=== PATIENT | female | born 1995 | race Two or more races ===

== ENCOUNTER 2018-10-08 07:34 | Emergency (ER) | payer OTHER ==
[~2018-10-08] VITALS: Ht 160 cm; Wt 125.6 kg
[2018-10-08 07:36] VITALS: Ht 160 cm; Wt 125.6 kg
[2018-10-08 09:42] VITALS: BP 110/74
== END 2018-10-08 09:43 | disposition home or self-care (01) ==
LOC: ED 07:34
DX: J45.901 Unspecified asthma with (acute) exacerbation (principal); E66.01 Morbid (severe) obesity due to excess calories; Z68.42 Body mass index [BMI] 45.0-49.9, adult; Z88.8 Allergy status to other drugs, medicaments and biological substances
CPT/HCPCS: J2930; J7613; J7644

== ENCOUNTER 2019-05-22 19:21 | Emergency (ER) | payer MEDICAID ==
[~2019-05-22] VITALS: Ht 160 cm; Wt 108.9 kg
[2019-05-22 19:30] VITALS: Ht 160 cm; Wt 108.9 kg
[2019-05-22 22:08] VITALS: BP 110/40
== END 2019-05-22 22:08 | disposition home or self-care (01) ==
LOC: ED 19:21
DX: O9A.212 Injury, poisoning and certain other consequences of external causes complicating pregnancy, second trimester (principal); S93.401A Sprain of unspecified ligament of right ankle, initial encounter; R10.9 Unspecified abdominal pain; Z3A.23 23 weeks gestation of pregnancy; W10.8XXA Fall (on) (from) other stairs and steps, initial encounter; Y93.89 Activity, other specified; Y92.89 Other specified places as the place of occurrence of the external cause; Y99.8 Other external cause status
CPT/HCPCS: Q0092

== ENCOUNTER 2019-05-25 16:12 | Emergency (ER) | payer MEDICAID ==
[~2019-05-25] VITALS: Ht 160 cm; Wt 106.6 kg
[2019-05-25 16:20] VITALS: BP 106/82; Ht 160 cm; Wt 106.6 kg
== END 2019-05-25 18:30 | disposition home or self-care (01) ==
LOC: ED 16:12
DX: S93.401A Sprain of unspecified ligament of right ankle, initial encounter (principal); J45.909 Unspecified asthma, uncomplicated; X50.1XXA Overexertion from prolonged static or awkward postures, initial encounter; Y93.89 Activity, other specified; Y92.89 Other specified places as the place of occurrence of the external cause; Y99.8 Other external cause status